=== PATIENT | male | born 1990 | race Hispanic/Latino ===

== ENCOUNTER 2018-10-08 07:16 | Day surgery (SDC) | payer OTHER ==
[2018-10-08] MEDS ORDERED: ANCEF/STERILE WATER 2 GM/20 ML IV NR (07:51)
[2018-10-08] MEDS ORDERED: LACTATED RINGERS 1,000 ML IV SCH (07:51)
--- NOTE | 2018-10-08 08:03 | Anesthesia Day of Surgery ---
Anesthesia Day of Surgery - Day of Surgery Patient Examined: Yes Patient H&P Reviewed: Yes Patient is NPO: Yes
[2018-10-08] MEDS ORDERED: SUBLIMAZE IV PRN (08:04)
[2018-10-08] MEDS ORDERED: DILAUDID IV PRN (08:04)
[2018-10-08] MEDS ORDERED: ZOFRAN IV PRN (08:04)
--- NOTE | 2018-10-08 08:04 | Anesthesia Consultation ---
Anesthesia Consult and Med Hx Date of service: 10/08/18 - Airway Anesthetic Teeth Evaluation: Good, Crowns ROM Head & Neck: Adequate Mental/Hyoid Distance: Adequate Mallampati Class: Class II Intubation Access Assessment: Good - Pre-Operative Health Status ASA Pre-Surgery Classification: ASA1 Proposed Anesthetic Plan: General - Pulmonary Hx Smoking: Yes (ON AND OFF SINCE AGE 15; QUIT 2 MOS AGO) - Central Nervous System Hx Psychiatric Problems: No - Other Systems Hx Alcohol Use: No Hx Substance Use: No Hx Cancer: No
[2018-10-08] MEDS ORDERED: TYLENOL PO NR (09:00)
[2018-10-08] MEDS ORDERED: NEURONTIN PO NR (09:00)
[2018-10-08] MEDS ORDERED: MARCAINE 0.5% INFILTRATI ONE ×2 (09:15→09:51)
[2018-10-08] MEDS ORDERED: XYLOCAINE 1% 20 mL ONE (09:15)
[2018-10-08] MEDS ORDERED: DIPRIVAN 10 MG/ML IV ONE (09:18)
[2018-10-08] MEDS ORDERED: ZEMURON IV ONE (09:18)
[2018-10-08] MEDS ORDERED: XYLOCAINE MPF 2% ONE (09:18)
[2018-10-08] MEDS ORDERED: DILAUDID ONE (09:18)
[2018-10-08] MEDS ORDERED: XYLOCAINE 1% 20 mL INFILTRATI ONE (09:51)
[2018-10-08] MEDS ORDERED: NACL 0.9% IR ONE (09:51)
[2018-10-08] MEDS ORDERED: BLOXIVERZ ONE (11:14)
[2018-10-08] MEDS ORDERED: ROBINUL ONE (11:14)
[2018-10-08] MEDS ORDERED: TORADOL ONE (11:15)
[2018-10-08] MEDS ORDERED: ZOFRAN ONE (11:15)
--- NOTE | 2018-10-08 11:40 | Short Stay Summary ---
Short Stay Documentation Date of service: 10/08/18 - History Principal diagnosis: pilonidal cyst H&P: obtained from office - Allergies and Medications Current Medications: Allergies No Known Allergies Allergy (Verified 10/07/18 13:47) Home Medications Medication Instructions Recorded Confirmed Last Taken Type No Known Home Medications [No 10/07/18 10/07/18 Unknown History Reported Home Medications] Active Medications Acetaminophen (Tylenol) 650 mg PO PREOP NR Stop: 10/08/18 15:00 Last Admin: 10/08/18 08:34 Dose: 650 mg Documented by: Cefazolin Sodium (Ancef/Sterile Water 2 Gm/20 Ml) 2 gm IV PREOP NR Stop: 10/08/18 23:59 Celecoxib (Celebrex) 200 mg PO PREOP NR Stop: 10/08/18 15:00 Last Admin: 10/08/18 08:36 Dose: 200 mg Documented by: Fentanyl (Sublimaze) 50 mcg IV Q5MIN PRN PRN Reason: Pain , Severe (7-10) Stop: 10/08/18 20:00 Gabapentin (Neurontin) 300 mg PO PREOP NR Stop: 10/08/18 13:00 Last Admin: 10/08/18 08:34 Dose: 300 mg Documented by: Hydromorphone HCl (Dilaudid) 0.5 mg IV Q10MIN PRN PRN Reason: Pain , Severe (7-10) Stop: 10/08/18 13:00 Lactated Ringer's (Lactated Ringers) 1,000 mls @ 75 mls/hr IV DIRECT SAHIL Stop: 10/08/18 23:59 Last Admin: 10/08/18 08:15 Dose: 75 mls/hr Documented by: Ondansetron HCl (Zofran) 4 mg IV ONCE PRN PRN Reason: Nausea And Vomiting - Brief post op/procedure progress note Date of procedure: 10/08/18 Pre-op diagnosis: pilonidal cyst Post-op diagnosis: same Procedure: excision of pilonidal cyst with complex closure Anesthesia: GETA, local Findings: multiple cyst tracts seen and one large chronically inflamed sinus tract to the right and superior to the gluteal cleft Surgeon: JEANNETTE SUNSHINE Estimated blood loss: minimal Pathology: list (pilonidal cyst) Specimen disposition: to lab Condition: stable - Hospital course Hospital course: Pt observed in PACU and discharged to home in stable condition when criteria met - Disposition Condition at discharge: Good Disposition: DC-[id number] TO HOME OR SELFCARE Short Stay Discharge Plan Activity: other (no driving if taking narcotic pain medications) Diet: regular Wound: per your surgeon's advice Additional Instructions: see printed discharge instructions Follow up with: [facility] [Primary Care Provider] - 7 Days JEANNETTE SUNSHINE DO [Staff Physician] - 14 Days Prescriptions: Ibuprofen 800 mg PO Q8H #30 tablet oxyCODONE /ACETAMINOPHEN [Percocet 5/325] 1 tab PO Q4HR PRN #30 tab PRN Reason: Pain , Severe (7-10)
[2018-10-08] MEDS ORDERED: PERCOCET 5/325 PO PRN (11:55)
[2018-10-08] MEDS ORDERED: PERCOCET 5/325 ONE (11:56)
[2018-10-08 12:09] VITALS: BP 138/82
--- NOTE | 2018-10-08 15:01 | Post Anesthesia Evaluation ---
- Post Anesthesia Evaluation Patient Participated: Yes Airway Patent: Yes Stable Respiratory Function: Yes Nausea/Vomiting: No Temp > 96.8F: Yes Pain Manageable: Yes Adequeate Hydration: Yes Anesthesia Complications: No
--- NOTE | 2018-10-09 10:07 | Operative Report ---
PREOPERATIVE DIAGNOSIS: Pilonidal cyst. POSTOPERATIVE DIAGNOSIS: Pilonidal cyst. PROCEDURE: Excision of pilonidal cyst and tracts with complex closure. ANESTHESIA: General endotracheal anesthesia, local. FINDINGS: Multiple cysts tract seen and one large chronically inflamed sinus tract to the right and superior to the gluteal cleft. SURGEON: Ivett Rothman DO ESTIMATED BLOOD LOSS: Minimal. PATHOLOGY: Pilonidal cyst. SPECIMEN DISPOSITION: To lab. CONDITION AND DISPOSITION: The patient is stable to PACU. HISTORY OF PRESENT ILLNESS AND INDICATION: The patient is a 28-year-old male, who has been suffering from a pilonidal cyst for the last 2 years. The patient states at one point, there was an area in the skin that opened and did drain purulent fluid. He was treated for this and since then has not had a repeat exacerbation; however, feels that the area is uncomfortable and something needs to be done to take care of it. He was examined in the office and was found to have pilonidal cyst disease with a satellite lesion in the skin, which had healed over with an underlying sinus tract. The recommendation was for excision of the pilonidal cyst with either closure or delayed healing. All risks, benefits, alternatives to surgery were discussed with the patient and questions answered. Consent was obtained. PROCEDURE IN DETAIL: The patient was identified in the preoperative area and taken back to the operating room and placed on the operating table in supine position. After anesthesia was induced, the patient was placed into prone position. His buttocks were retracted laterally by using tape. The sacral and buttock region were then prepped and draped in the usual sterile fashion. A time-out performed. Upon examination of the patient's sacral area, there were multiple midline sinus tracts as well as the one satellite tract to the right and superior to the gluteal cleft approximately 7-8 cm from the midline. Local anesthetic was infiltrated into the skin and subcutaneous tissue at the intended incision site. The incision site was marked with a marking pen. An elliptical incision was made to incorporate all of the sinus tracts and placed slightly to the right of midline in order to facilitate off midline closure of the incision. The incision was made using a 15 blade. The skin and subcutaneous tissue were then slowly carefully dissected using electrocautery straight down to the presacral fascia. Once the presacral fascia was encountered, the sinus tracts were probed and it was ensured that all sinus tracts were incorporated into the specimen. The sinus tracts were carved out using electrocautery and dissected from the presacral fascia using electrocautery. There was one sinus tract, which was probed at the superior portion that led into a large sinus tract going towards the right and superior to the gluteal cleft. This was approximately 7-8 cm from the incision as mentioned. Therefore, the sinus tract was carefully dissected free from the surrounding tissue and excised subcutaneously without making an additional incision. The sinus tract was probed and ensured to have been removed in its entirety. The specimen was passed off the table. The wound was checked for hemostasis, which was carefully ensured using Bovie electrocautery and pressure. The wound was copiously irrigated with saline. Once hemostasis was carefully ensured, subcutaneous and fascial flaps were created on the patient's left. The fascia was then closed without tension using interrupted 2-0 Vicryl sutures. The skin was then approximated using 2-0 nylon vertical mattress sutures. The incision was closed off the midline to the right. The skin was cleansed with a wet and dry sponge and the wound was covered with 4 x 4 gauze and Medipore tape. At the end of the case, sponge, instrument, sharp counts were correct x 2. The patient was awoken from anesthesia, extubated, and taken to PACU in stable condition. [facility]# [id number] SHY/SAFIA
== END 2018-10-08 12:53 | disposition home or self-care (01) ==
LOC: OR 07:16
PROVIDERS: ATTEND Surgery
DX: L05.91 Pilonidal cyst without abscess (principal); L08.89 Other specified local infections of the skin and subcutaneous tissue; Z79.899 Other long term (current) drug therapy; Z87.891 Personal history of nicotine dependence; Z98.890 Other specified postprocedural states
CPT/HCPCS: 11772; 88304; J0690; J1170; J1885; J2405; J2704; J2710; J7120